=== PATIENT | male | born 2000 | race Caucasian/White ===

== ENCOUNTER 2024-07-10 20:52 | Emergency (ER) | payer BC ==
[2024-07-10] MEDS: Azithromycin 250 MG Tab PO ONE (21:29)
== END 2024-07-10 21:25 | disposition home or self-care (01) ==
LOC: MW.ED 20:52
DX: J02.0 Streptococcal pharyngitis (principal); Z88.0 Allergy status to penicillin; Z88.1 Allergy status to other antibiotic agents; Z75.8 Other problems related to medical facilities and other health care
CPT/HCPCS: 99283; A9270; 99284